=== PATIENT | female | born 1950 | race Caucasian/White ===

== ENCOUNTER → 2016-08-06 | Outpatient (CLI) | payer OTHER | LOC: FIMAGING 13:59 | PROVIDERS: ATTEND Physician Assistant | DX: M48.06 Spinal stenosis, lumbar region (principal); M51.86 Other intervertebral disc disorders, lumbar region; M43.16 Spondylolisthesis, lumbar region; M51.26 Other intervertebral disc displacement, lumbar region; M99.73 Connective tissue and disc stenosis of intervertebral foramina of lumbar region ==